=== PATIENT | male | born 1965 | race Two or more races ===

== ENCOUNTER 2021-04-13 14:45 | Emergency (ER) | payer MEDICAID ==
[~2021-04-13] VITALS: Ht 170.2 cm; Wt 77.0 kg
[2021-04-13 15:00] VITALS: BP 110/82
[2021-04-13] MEDS ORDERED: LORA10TA7 MT (15:27)
[2021-04-13] MEDS: LORATADINE 10MG TABLET PO SCH ×2 (16:37→16:51)
== END 2021-04-13 16:52 | disposition home or self-care (01) ==
LOC: ER 14:45
DX: R09.89 Other specified symptoms and signs involving the circulatory and respiratory systems (principal); R07.0 Pain in throat; Z20.822 Contact with and (suspected) exposure to COVID-19; Z88.0 Allergy status to penicillin
CPT/HCPCS: 99283; C9803; U0003; U0005

== ENCOUNTER 2022-01-24 12:23 | Emergency (ER) | payer MEDICAID, OTHER ==
[~2022-01-24] VITALS: Ht 165.1 cm; Wt 68.0 kg
[~2022-01-24 12:23] MED LIST: LORA10TA7 MT
[2022-01-24] MEDS ORDERED: IBUPROFEN 600MG TABLET PO STA (13:38)
[2022-01-24] MEDS ORDERED: IBUP-2029 PO (13:47)
[2022-01-24] MEDS ORDERED: SULF1TAB48 PO (13:47)
[2022-01-24] MEDS ORDERED: CEPH500C2 PO (13:47)
[2022-01-24 14:08] VITALS: BP 116/82
== END 2022-01-24 15:12 | disposition home or self-care (01) ==
LOC: ER 12:23
DX: L02.214 Cutaneous abscess of groin (principal)
CPT/HCPCS: 99283

== ENCOUNTER 2022-06-26 12:16 | Emergency (ER) | payer OTHER ==
[~2022-06-26] VITALS: Ht 167.6 cm; Wt 80.0 kg
[~2022-06-26 12:16] MED LIST changes: +CEPH500C2 PO; +IBUP-2029 PO; +SULF1TAB48 PO
[2022-06-26] MEDS ORDERED: HYDROCODONE/ACETAMINOPHEN 5/325MG TABLET PO STA (12:35)
[2022-06-26] MEDS ORDERED: IBUP-2028 MT (15:19)
[2022-06-26] MEDS ORDERED: METH-653 MT (15:19)
[2022-06-26] MEDS ORDERED: TOPUD PO (15:19)
[2022-06-26] MEDS ORDERED: LIDO1ADH23 TP (15:20)
[2022-06-26] MEDS ORDERED: IBUPROFEN 400MG TABLET PO ONE (15:30)
[2022-06-26 15:32] VITALS: BP 117/71
== END 2022-06-26 15:45 | disposition home or self-care (01) ==
LOC: ER 14:00
DX: S06.0XAA Concussion with loss of consciousness status unknown, initial encounter (principal); Z88.0 Allergy status to penicillin; W18.30XA Fall on same level, unspecified, initial encounter; Y93.89 Activity, other specified; Y92.89 Other specified places as the place of occurrence of the external cause; Y99.8 Other external cause status
CPT/HCPCS: 71045; 73030; 99284

== ENCOUNTER 2024-02-04 12:43 | Emergency (ER) | payer MEDICAID, OTHER ==
[~2024-02-04] VITALS: Ht 170.2 cm; Wt 60.0 kg
[~2024-02-04 12:43] MED LIST changes: +IBUP-2028 MT; +LIDO1ADH23 TP; +METH-653 MT; +TOPUD PO
[2024-02-04 13:19] VITALS: O2SAT 100
[2024-02-04] MEDS ORDERED: BENZ200C52 MT (14:16)
[2024-02-04 14:48] VITALS: BP 111/70; PULSE 80; RESP 15; TEMP 98.4
== END 2024-02-04 14:50 | disposition home or self-care (01) ==
LOC: ER 12:43
DX: R05.9 Cough, unspecified (principal); Z88.0 Allergy status to penicillin; Z79.899 Other long term (current) drug therapy
CPT/HCPCS: 71045; 99283

== ENCOUNTER 2024-02-10 07:28 | Emergency (ER) | payer MEDICAID, OTHER ==
[~2024-02-10] VITALS: Ht 170.2 cm; Wt 104.0 kg
[~2024-02-10 07:28] MED LIST changes: +BENZ200C52 MT
[2024-02-10 07:39] VITALS: O2SAT 98
[2024-02-10] MEDS ORDERED: TOPUD PO (08:37)
[2024-02-10] MEDS: ACETAMINOPHEN 325MG TABLET PO ONE (08:45)
[2024-02-10 09:39] VITALS: BP 128/78; PULSE 70; RESP 16; TEMP 98.1
== END 2024-02-10 09:39 | disposition home or self-care (01) ==
LOC: ER 07:57
DX: B34.9 Viral infection, unspecified (principal); Z88.0 Allergy status to penicillin; Z20.822 Contact with and (suspected) exposure to COVID-19
CPT/HCPCS: 87426; 99283

== ENCOUNTER 2024-02-17 09:56 | Emergency (ER) | payer MEDICAID, OTHER ==
[~2024-02-17] VITALS: Ht 167.6 cm; Wt 64.0 kg
[2024-02-17 10:04] VITALS: O2SAT 98
[2024-02-17 10:27] LABS: BASOPHILS % 1.1 % (0.0-2.0); HEMATOCRIT. 38.3 % (42.0-52.0); HEMOGLOBIN. 13.2 g/dL (14.0-18.0); LYMPHOCYTES % 41.4 % (20.0-50.0); MEAN CORPUSCULAR HEMOGLOBIN 32.5 pg (28.0-32.0); MEAN CORPUSCULAR HGB CONC 34.4 g/dL (31.0-37.0); MEAN CORPUSCULAR VOLUME 94.5 fL (80.0-94.0); MEAN PLATELET VOLUME 7.6 fl (7.4-10.4); MONOCYTES % 5.7 % (2.0-8.0); NEUTROPHILS % 45.8 % (40.0-76.0); PLATELET 286 x1000/uL (130-400); RED BLOOD CELL COUNT 4.06 mill/uL (4.7-6.1); RED CELL DISTRIBUTION WIDTH 12.4 % (11.6-14.6); WHITE BLOOD COUNT 4.7 x1000/uL (4.5-11.0)
[2024-02-17 10:34] LABS: CARBON DIOXIDE 24 mEq/L (21-32); CHLORIDE 106 mEq/L (98-107); POTASSIUM 3.7 mEq/L (3.5-5.1); SODIUM 136 mEq/L (136-145)
[2024-02-17 10:35] LABS: CALCIUM 8.9 mg/dL (8.7-10.4)
[2024-02-17 10:40] LABS: CREATININE 0.9 mg/dL (0.6-1.3); GLUCOSE 192 mg/dL (70-105); UREA NITROGEN BLOOD 16 mg/dL (9-23)
[2024-02-17 10:41] LABS: TROPONIN I HIGH SENSITIVITY 5 ng/L (3.0-53)
[2024-02-17 13:24] LABS: CLARITY URINE CLEAR (CLEAR); COLOR URINE YELLOW (YELLOW); GLUCOSE URINE NEGATIVE (NEGATIVE); KETONES URINE NEGATIVE (NEGATIVE); LEUKOCYTE ESTERASE URINE NEGATIVE (NEGATIVE); NITRITE URINE NEGATIVE (NEGATIVE); OCCULT BLOOD URINE 2+ (NEGATIVE); PH URINE 5.5 (4.5-8.0); PROTEIN URINE NEGATIVE (NEGATIVE); SPECIFIC GRAVITY URINE 1.023 (1.005-1.030); UROBILINOGEN URINE 0.2 E.U./dL (0.2-1.0)
[2024-02-17 13:42] LABS: BACTERIA URINE NONE SEEN; SQUAMOUS EPITHELIAL CELL URINE 1+ /lpf (RARE/1+); WBC URINE 0-2 /hpf (0-2); YEAST URINE NONE SEEN
[2024-02-17 14:41] VITALS: BP 108/60; PULSE 78; RESP 16; TEMP 98.1
== END 2024-02-17 14:44 | disposition home or self-care (01) ==
LOC: ER 10:33
DX: R53.1 Weakness (principal); Z79.899 Other long term (current) drug therapy; Z88.0 Allergy status to penicillin
CPT/HCPCS: 36415; 74176; 80048; 81003; 84484; 85025; 93005; 99284